=== PATIENT | female | born 1985 | race Caucasian/White ===

== ENCOUNTER 2016-08-09 10:35 | Emergency (ER) | payer OTHER ==
[2016-08-09 11:46] VITALS: BP 128/82
--- NOTE | 2016-08-09 12:17 | UC ---
Throat Pain/Nasal Roberto HPI - History of Current Complaint Chief Complaint: UCGeneralIllness Stated Complaint: THROAT,EARS Time Seen by Provider: 08/09/16 11:49 Hx Obtained From: Patient Hx Last Menstrual Period: 08/17/15 Onset/Duration: Sudden Onset, Lasting Days Severity: Moderate Cough: Nonproductive Associated Signs & Symptoms: Positive: Negative - Epiglottits Risk Factors Epiglottis Risk Factors: Negative - Allergies/Home Medications Allergies/Adverse Reactions: Allergies Allergy/AdvReac Type Severity Reaction Status Date / Time Cefprozil [From Cefzil] Allergy Hives Verified 08/09/16 11:46 Celecoxib [From Celebrex] Allergy Hives Verified 08/09/16 11:46 Quadrivalent HPV Allergy Hives Verified 08/09/16 11:46 (6,11,16,18) Recom [From Gardasil] environmental allergies Allergy Sneezing Uncoded 08/09/16 11:46 Home Medications: Home Medications Oral Contraceptives DAILY 08/09/16 [History] PMH/Surg Hx/FS Hx/Imm Hx Previously Healthy: Yes Respiratory History Of: Denies: Asthma - Surgical History Surgical History: Yes Surgery Procedure, Year, and Place: [facility], 2006, [place]; Ear TUbes x 4-5; T&A, ~2002 - Family History Known Family History: Negative: Cardiac Disease, Hypertension, Diabetes - Social History Alcohol Use: None Substance Use Type: None Smoking Status (MU): Former Smoker Type: Cigarettes Amount Used/How Often: 1/5 PPD Length of Time of Smoking/Using Tobacco: On and Off for 11 Years Have You Smoked in the Last Year: No When Did the Patient Quit Smoking/Using Tobacco: 08/27/15 - Immunization History Most Recent Influenza Vaccination: February 2016 Review of Systems Skin: Negative Eyes: Negative ENT: Sore Throat, Ear Ache Respiratory: Negative Cardiovascular: Negative Genitourinary: Negative Motor: Negative Neurovascular: Negative Musculoskeletal: Negative Neurological: Negative Psychological: Negative All Other Systems Reviewed And Are Negative: Yes Physical Exam Triage Information Reviewed: Yes Appearance: Well-Nourished, Ill-Appearing, Pain Distress Vital Signs: Initial Vital Signs Temp 98.5 F 08/09/16 11:42 Pulse 88 08/09/16 11:42 Resp 16 08/09/16 11:42 BP 128/82 08/09/16 11:42 Pulse Ox 98 08/09/16 11:42 Vital Signs Reviewed: Yes Eye Exam: Normal Eyes: Positive: Conjunctiva Clear ENT Exam: Normal ENT: Positive: Pharyngeal erythema, TMs normal, Tonsillar swelling, Tonsillar exudate Dental Exam: Normal Neck exam: Normal Neck: Positive: Supple, Nontender, No Lymphadenopathy Respiratory Exam: Normal Respiratory: Positive: Chest non-tender, Lungs clear, Normal breath sounds Cardiovascular Exam: Normal Cardiovascular: Positive: RRR, No Murmur, Pulses Normal Abdominal Exam: Normal Abdomen Description: Positive: Nontender, No Organomegaly, Soft Bowel Sounds: Positive: Present Musculoskeletal Exam: Normal Musculoskeletal: Positive: Strength Intact, ROM Intact, No Edema Neurological Exam: Normal Psychological Exam: Normal Skin Exam: Normal Throat Pain/Nasal Course/Dx - Course Course Of Treatment: hx obtained,exam performed, her kids have strep, treated on clinical presentation - Differential Dx/Diagnosis Differential Diagnosis/HQI/PQRI: Influenza, Laryngitis, Otitis Media, Pharyngitis, Sinusitis, URI Provider Diagnoses: strep pharyngitis Discharge - Discharge Plan Condition: Stable Disposition: HOME Prescriptions: Amoxicillin/Clavulanate TAB* [Augmentin TAB 875*] 875 mg PO BID #20 tab Patient Education Materials: Strep Throat (ED) Additional Instructions: take the medication as prescribed. increae your fluid intake and get plenty of rest.
== END 2016-08-09 12:29 | disposition home or self-care (01) ==
LOC: UCCORT 10:35
DX: J02.0 Streptococcal pharyngitis (principal); Z88.1 Allergy status to other antibiotic agents; Z88.8 Allergy status to other drugs, medicaments and biological substances; Z87.891 Personal history of nicotine dependence
CPT/HCPCS: 99211; G0463

== ENCOUNTER 2017-02-15 12:34 | Emergency (ER) | END 2017-02-15 15:33 | disposition left against medical advice (07) | LOC: UCCORT 12:34 | DX: H92.02 Otalgia, left ear (principal); Z53.21 Procedure and treatment not carried out due to patient leaving prior to being seen by health care provider ==

== ENCOUNTER 2017-02-19 08:54 | Emergency (ER) | payer OTHER ==
[2017-02-19 09:20] VITALS: BP 116/64
--- NOTE | 2017-02-19 09:57 | ED ---
Throat Pain/Nasal Congestion - HPI Summary HPI Summary: Pt present with progressive ear pain, sinus pressure and sore throat. no fever, chills. No relief with OTC meds. no rash. No velarde, vision changes Pt denies cp, sob, cough Pt's medications reviewed this visit. - History of Current Complaint Chief Complaint: UCRespiratory Time Seen by Provider: 02/19/17 09:54 Hx Obtained From: Patient Severity: Moderate Cough: Nonproductive - Allergies/Home Medications Allergies/Adverse Reactions: Allergies Allergy/AdvReac Type Severity Reaction Status Date / Time Cefprozil [From Cefzil] Allergy Hives Verified 02/19/17 09:15 Celecoxib [From Celebrex] Allergy Hives Verified 02/19/17 09:15 Quadrivalent HPV Allergy Hives Verified 02/19/17 09:15 (6,11,16,18) Recom [From Gardasil] environmental allergies Allergy Sneezing Uncoded 02/19/17 09:15 Home Medications: Home Medications Ibuprofen TAB* [Advil TAB*] 600 mg PO Q6H PRN 02/19/17 [History Confirmed ] PMH/Surg Hx/FS Hx/Imm Hx Previously Healthy: Yes Respiratory History: Denies: Hx Asthma - Surgical History Surgery Procedure, Year, and Place: [facility], 2006, [place]; Ear TUbes x 4-5; T&A, ~2002 Infectious Disease History: Yes Infectious Disease History: Reports: Hx Shingles - X 3 Denies: Traveled Outside the [place] in Last 30 Days - Family History Known Family History: Negative: Cardiac Disease, Hypertension, Diabetes - Social History Occupation: Employed Full-time Lives: With Family Alcohol Use: None Substance Use Type: Reports: None Smoking Status (MU): Light Every Day Tobacco Smoker Type: Cigarettes Amount Used/How Often: 1/7 PPD Length of Time of Smoking/Using Tobacco: On and Off Since Age 19 Have You Smoked in the Last Year: No Review of Systems Positive: Fever - tactile Positive: Sore Throat, Ear Ache, Nasal Discharge Respiratory: Negative Gastrointestinal: Negative All Other Systems Reviewed And Are Negative: Yes Physical Exam Triage Information Reviewed: Yes Vital Signs On Initial Exam: Initial Vitals Temp Pulse Resp BP Pulse Ox 98 F 66 16 116/64 99 02/19/17 09:13 02/19/17 09:13 02/19/17 09:13 02/19/17 09:13 02/19/17 09:13 Vital Signs Reviewed: Yes Appearance: Positive: Well-Appearing, Pain Distress - appears uncomfortable Skin: Positive: Warm, Skin Color Reflects Adequate Perfusion Head/Face: Positive: Normal Head/Face Inspection Eyes: Positive: Normal, EOMI, JACK, Conjunctiva Clear, Conjunctiva Inflammed ENT: Negative: TMs normal - + left ear erythema, bulging no mastoid pain right TM mild erythema turbinate inflammed + PND no exudate no erythema Neck: Positive: Supple, Nontender, No Lymphadenopathy Respiratory/Lung Sounds: Positive: Clear to Auscultation, Breath Sounds Present , Decreased Breath Sounds Cardiovascular: Positive: Normal, RRR Abdomen Description: Positive: Nontender, No Organomegaly, Soft Bowel Sounds: Positive: Present Musculoskeletal: Positive: Normal Neurological: Positive: Normal, Sensory/Motor Intact, Alert, Oriented to Person Place, Time Psychiatric: Positive: Normal AVPU Assessment: Alert - [place] Coma Scale Best Eye Response: 4 - Spontaneous Best Motor Response: 6 - Obeys Commands Best Verbal Response: 5 - Oriented Diagnostics - Vital Signs Vital Signs Temp Pulse Resp BP Pulse Ox 02/19/17 09:13 98 F 66 16 116/64 99 - Laboratory Lab Statement: Any lab studies that have been ordered have been reviewed, and results considered in the medical decision making process. EENT Course/Dx - Course Assessment/Plan: Pt presents with sinus pressure, ear pain. left OM on exam. will abx. secretion precautions. return precautions - Diagnoses Provider Diagnoses: Otitis media Discharge - Discharge Plan Condition: Stable Disposition: HOME Prescriptions: Amoxicillin/Clavulanate TAB* [Augmentin TAB 875*] 875 mg PO BID #20 tab Fluticasone NASAL SPRAY 50MCG* [Flonase NASAL SPRAY 50MCG*] 2 spray BOTH NARES DAILY #1 btl Patient Education Materials: Otitis Media (ED) Referrals: Wendy Abdul MD [Primary Care Provider] - Additional Instructions: - Stay well hydrated. Drink plenty of non-alcoholic, non-caffinated beverages. - take antibiotics and nasal spray as prescribed. - After you have been on antibiotics for 2 days - change your toothbrush and your pillowcase. These infections are spread by secretions - do NOT share eating or drinking utensils - clean items you share with other people such as cell phones, computer mouse, TV remote, computer tablets, etc - Alternate ibuprofen (Advil, Motrin) 600mg and Tylenol every 3 hours for pain or fever. Take with food. Do NOT take for more than 4-5 days. Call your doctor or return with questions or concerns
== END 2017-02-19 10:17 | disposition home or self-care (01) ==
LOC: UCCORT 08:54
DX: H66.92 Otitis media, unspecified, left ear (principal); F17.210 Nicotine dependence, cigarettes, uncomplicated; Z88.6 Allergy status to analgesic agent; Z88.1 Allergy status to other antibiotic agents; Z88.7 Allergy status to serum and vaccine
CPT/HCPCS: 99212; G0463

== ENCOUNTER 2017-07-30 16:44 | Emergency (ER) | payer OTHER ==
[2017-07-30 18:26] VITALS: BP 120/66
--- NOTE | 2017-07-30 18:32 | UC ---
Knee Pain HPI - HPI Summary HPI Summary: Pt with right knee pain x approx 10 days started after jumping on [employer] [place]. Pt states intermittently feels like "catches" little relief with motrin/ apap. Pt has ice but continue pain. No fall. no other injuries. no paresthesia. Pt states several years ago had meniscal tear - no intervention. Pt's medications reviewed this visit - History of Current Complaint Chief Complaint: UCLowerExtremity Stated Complaint: RT KNEE PAIN Time Seen by Provider: 07/30/17 18:16 Hx Obtained From: Patient Hx Last Menstrual Period: 07/27/17 Onset/Duration: Gradual Onset, Lasting Days Pain Intensity: 4 Pain Scale Used: 0-10 Numeric Character: Sharp, Stiffness Aggravating Factor(s): Movement, Weight Bearing Alleviating Factor(s): Rest, Position Associated Signs And Symptoms: Positive: Swelling. Negative: Numbness, Tingling - Allergies/Home Medications Allergies/Adverse Reactions: Allergies Allergy/AdvReac Type Severity Reaction Status Date / Time cefprozil [From Cefzil] Allergy Hives Verified 07/30/17 18:18 celecoxib [From Celebrex] Allergy Hives Verified 07/30/17 18:18 ciprofloxacin Allergy Hives Verified 07/30/17 18:18 environmental allergies Allergy Sneezing Uncoded 07/30/17 18:18 HPV Vaccine Allergy Hives Uncoded 07/30/17 18:18 Home Medications: Home Medications NK [No Home Medications Reported] 07/30/17 [History Confirmed 07/30/17] PMH/Surg Hx/FS Hx/Imm Hx Previously Healthy: Yes - Surgical History Surgical History: Yes Surgery Procedure, Year, and Place: LEEP, 2007, [place]; Ear TUbes x 4-5; T&A, ~2002 - Family History Known Family History: Negative: Cardiac Disease, Hypertension, Diabetes - Social History Occupation: Works From/At Home Lives: With Family Alcohol Use: Occasionally Substance Use Type: None Smoking Status (MU): Light Every Day Tobacco Smoker Type: Cigarettes Amount Used/How Often: 1/7 PPD Length of Time of Smoking/Using Tobacco: On and Off Since Age 19 Have You Smoked in the Last Year: No When Did the Patient Quit Smoking/Using Tobacco: 08/27/15 - Immunization History Most Recent Influenza Vaccination: Not the Season Review of Systems Constitutional: Negative Skin: Negative Motor: Other - right knee pain Musculoskeletal: Other: Neurological: Negative All Other Systems Reviewed And Are Negative: Yes Physical Exam Triage Information Reviewed: Yes Appearance: Well-Appearing, No Pain Distress, Well-Nourished Vital Signs: Initial Vital Signs Temp 98.6 F 07/30/17 18:18 Pulse 70 07/30/17 18:18 Resp 16 07/30/17 18:18 BP 120/66 07/30/17 18:18 Pulse Ox 100 07/30/17 18:18 Vital Signs Reviewed: Yes Eye Exam: Normal ENT Exam: Normal ENT: Positive: Normal ENT inspection, Hearing grossly normal, Pharynx normal Dental Exam: Normal Neck exam: Normal Neck: Positive: Supple, Nontender Respiratory Exam: Normal Respiratory: Positive: Chest non-tender, Lungs clear, No respiratory distress, No accessory muscle use Cardiovascular: Positive: Other: - 2+ PT, popliteal Musculoskeletal: Positive: Other: - + SLE + flex/ext right knee with pain medial aspect knee Neg anterior/posterior drawer; no laxity lateral stress + TTP left anterior, medial margin joint line no crepitus Neurological Exam: Normal Neurological: Positive: Alert, Other: - + gross sensation throughout Psychological Exam: Normal Skin: Positive: Other - mild edema diffuse right knee Diagnostics - Radiology No standard instances Radiology Interpretation Completed By: Radiologist - small joint infection, no fx Re-Evaluation - Re-Evaluation First Eval Comment: reviewd xray with pt. motrin/apap. ortho referral. alexys crutch. elevate Knee Pain Course/Dx - Course Course Of Treatment: right lateral knee pain s/p jumping injury. pt with pain medial aspect of right knee. imaging. splint. alexys. elevate. pcp f/u - Differential Dx/Diagnosis Provider Diagnoses: right knee sprain Discharge - Discharge Plan Condition: Stable Disposition: HOME Patient Education Materials: Knee Sprain (DC) Referrals: Akash Leone MD [Medical Doctor] - Wendy Abdul MD [Primary Care Provider] - Additional Instructions: -wear alexys wrap for comfort and support -apply ice (20 min at a time) every 2-3 hours for the next 2 days -use crutches until you can walk normally without a limp -Elevate your leg - this will help with swelling and pain -alternate ibuprofen (Advil, Motrin) and Tylenol every 3hours for pain. Take with food. Do NOT take for more than 4-5 days -Contact the orthopedic provider to arrange a follow-up appointment. Contact your doctor or return with questions or concerns
--- NOTE | 2017-07-30 19:20 | RAD ---
Indication: Right knee pain. 4 views of the right knee demonstrates joint space to be well preserved. Small joint effusion is noted. No fractures identified. IMPRESSION: Small joint effusion without fracture.
== END 2017-07-30 19:50 | disposition home or self-care (01) ==
LOC: UCCORT 16:44
DX: S83.91XA Sprain of unspecified site of right knee, initial encounter (principal); Y93.39 Activity, other involving climbing, rappelling and jumping off; Y93.89 Activity, other specified; Y92.9 Unspecified place or not applicable; Z88.1 Allergy status to other antibiotic agents; Z88.7 Allergy status to serum and vaccine; Z88.8 Allergy status to other drugs, medicaments and biological substances
CPT/HCPCS: 99213; G0463

== ENCOUNTER 2018-10-11 10:56 | Emergency (ER) | payer OTHER ==
[2018-10-11 12:30] VITALS: BP 119/79
--- NOTE | 2018-10-11 12:30 | UC ---
Ear Complaint HPI - HPI Summary HPI Summary: Patient has chronic seasonal allergies and started expressing leftearache over the past 24 hours. Her last ear infection was 2 months ago. She has not followed up with an ear nose and throat physician for her chronic ear infections. - History of Current Complaint Stated Complaint: BI LAT EAR PAIN Time Seen by Provider: 10/11/18 12:30 Hx Obtained From: Patient Hx Last Menstrual Period: 10/09/18 ?: No Onset/Duration: Sudden Onset Severity Initially: Moderate Severity Currently: Mild Pain Intensity: 4 Aggravating Factors: Nothing Alleviating Factors: Nothing Related History: Seasonal Allergies - Recent flareup of seasonal allergies - Allergies/Home Medications Allergies/Adverse Reactions: Allergies Allergy/AdvReac Type Severity Reaction Status Date / Time cefprozil [From Cefzil] Allergy Hives Verified 10/11/18 12:26 celecoxib [From Celebrex] Allergy Hives Verified 10/11/18 12:26 ciprofloxacin Allergy Hives Verified 10/11/18 12:26 human papillomavirus Allergy Hives Verified 10/11/18 12:26 vaccine, quadr [From Gardasil (PF)] environmental allergies Allergy Sneezing Uncoded 10/11/18 12:26 Home Medications: Home Medications Ibuprofen TAB* [Advil TAB*] 600 mg PO Q6H PRN 10/11/18 [History Confirmed ] LevoCETirizine TAB (NF) [Xyzal TAB (NF)] 5 mg PO DAILY 10/11/18 [History Confirmed 10/11/18] Norethindrone AC-Eth Estradiol [Loestrin 06/16-21 1-20 mg-Mcg] 1 tab PO DAILY [History Confirmed 10/11/18] PMH/Surg Hx/FS Hx/Imm Hx Previously Healthy: Yes - Surgical History Surgical History: Yes Surgery Procedure, Year, and Place: [facility], 2007, [place]; Ear TUbes x 4-5; T&A, ~2002 - Family History Known Family History: Negative: Cardiac Disease, Hypertension, Diabetes - Social History Alcohol Use: Occasionally Substance Use Type: None Smoking Status (MU): Light Every Day Tobacco Smoker Type: Cigarettes Amount Used/How Often: / PPD Length of Time of Smoking/Using Tobacco: On and Off Since Age 19 Have You Smoked in the Last Year: No When Did the Patient Quit Smoking/Using Tobacco: 08/27/15 - Immunization History Most Recent Influenza Vaccination: Not the 2016/2017 Season Review of Systems All Other Systems Reviewed And Are Negative: Yes ENT: Positive: Ear Ache - left-sided earache Is Patient Immunocompromised?: No Physical Exam Triage Information Reviewed: Yes Appearance: Well-Appearing, No Pain Distress, Well-Nourished Vital Signs: Initial Vital Signs Temp 98.5 F 10/11/18 12:25 Pulse 72 10/11/18 12:25 Resp 16 10/11/18 12:25 BP 119/79 10/11/18 12:25 Pulse Ox 100 10/11/18 12:25 Vital Signs Reviewed: Yes Eye Exam: Normal ENT: Positive: Hearing grossly normal, Pharynx normal, TM red - Left tympanic membrane with erythema poor landmarks and light reflex. Neck: Positive: Supple, Nontender, No Lymphadenopathy Respiratory: Positive: Lungs clear, Normal breath sounds, No respiratory distress, No accessory muscle use Cardiovascular: Positive: RRR, No Murmur, Pulses Normal, Brisk Capillary Refill Musculoskeletal Exam: Normal Neurological Exam: Normal Psychological Exam: Normal Skin Exam: Normal Ear Complaint Course/Dx - Course Course Of Treatment: Patient's last ear infection was approximately 2 months ago and she stated that she had taken a Z-Tj but then was changed to "high dose amoxicillin". At this point time going to give her on Augmentin 875 by mouth twice a day 10 days with a follow-up to the ear nose and throat physician. - Differential Dx/Diagnosis Provider Diagnosis: Left otitis media Discharge - Sign-Out/Discharge Documenting (check all that apply): Patient Departure All imaging exams completed and their final reports reviewed: No Studies - Discharge Plan Condition: Fair Disposition: HOME Prescriptions: Amoxicillin/Clavulanate TAB* [Augmentin TAB 875*] 875 mg PO BID 10 Days #20 tab Patient Education Materials: Ear Infection (ED) Referrals: Vanesa Carlton PA [Primary Care Provider] - Manfred Trujillo MD [Medical Doctor] - Additional Instructions: Take the antibiotic twice a day with food, Tylenol or Motrin for pain, follow- up with Dr. Trujillo in the next 4 or 5 days if no improvement and for treatment of chronic ear infections. - Billing Disposition and Condition Condition: FAIR Disposition: Home
== END 2018-10-11 13:06 | disposition home or self-care (01) ==
LOC: UCCORT 10:56
DX: H66.92 Otitis media, unspecified, left ear (principal); F17.210 Nicotine dependence, cigarettes, uncomplicated; Z91.09 Other allergy status, other than to drugs and biological substances; Z88.1 Allergy status to other antibiotic agents; Z88.8 Allergy status to other drugs, medicaments and biological substances; Z88.7 Allergy status to serum and vaccine
CPT/HCPCS: 99212; G0463

== ENCOUNTER 2018-11-27 12:51 | Emergency (ER) | payer OTHER ==
[2018-11-27 13:10] VITALS: BP 124/73
--- NOTE | 2018-11-27 13:27 | ED ---
Throat Pain/Nasal Congestion - HPI Summary HPI Summary: 33 yr old female with the complaint of sinus pressure, post nasal drip, and ear pain. Onset over the past week. She states she gets frequent sinus infection and ear infections. She states her symptoms are moderate. - History of Current Complaint Chief Complaint: UCGeneralIllness Time Seen by Provider: 11/27/18 13:06 - Allergies/Home Medications Allergies/Adverse Reactions: Allergies Allergy/AdvReac Type Severity Reaction Status Date / Time cefprozil [From Cefzil] Allergy Hives Verified 11/27/18 13:10 celecoxib [From Celebrex] Allergy Hives Verified 11/27/18 13:10 ciprofloxacin Allergy Hives Verified 11/27/18 13:10 human papillomavirus Allergy Hives Verified 11/27/18 13:10 vaccine, quadr [From Gardasil (PF)] environmental allergies Allergy Sneezing Uncoded 11/27/18 13:10 Home Medications: Home Medications Fluticasone NASAL SPRAY 50MCG* [Flonase NASAL SPRAY 50MCG*] 2 spray BOTH NARES DAILY 11/27/18 [History Confirmed 11/27/18] PMH/Surg Hx/FS Hx/Imm Hx Respiratory History: Denies: Hx Asthma - Surgical History Surgery Procedure, Year, and Place: LEEP, 2007, [place]; Ear TUbes x 4-5; T&A, ~2002 Infectious Disease History: No Infectious Disease History: Reports: Hx Shingles Denies: Traveled Outside the [place] in Last 30 Days - Family History Known Family History: Negative: Cardiac Disease, Hypertension, Diabetes - Social History Occupation: Employed Full-time Alcohol Use: Occasionally Substance Use Type: Reports: None Smoking Status (MU): Light Every Day Tobacco Smoker Type: Cigarettes Amount Used/How Often: 1/7 PPD Length of Time of Smoking/Using Tobacco: On and Off Since Age 19 Have You Smoked in the Last Year: No Review of Systems Constitutional: Negative Positive: Ear Ache, Nasal Discharge All Other Systems Reviewed And Are Negative: Yes Physical Exam Triage Information Reviewed: Yes Vital Signs On Initial Exam: Initial Vitals Temp Pulse Resp BP Pulse Ox 97.6 F 88 16 124/73 100 11/27/18 13:06 11/27/18 13:06 11/27/18 13:06 11/27/18 13:06 11/27/18 13:06 Vital Signs Reviewed: Yes Appearance: Positive: Well-Appearing, No Pain Distress Skin: Positive: Warm, Skin Color Reflects Adequate Perfusion Head/Face: Positive: Normal Head/Face Inspection Eyes: Positive: EOMI, JACK ENT: Positive: TM red - bilateral right worse then left, Sinus tenderness Neck: Positive: Nontender Respiratory/Lung Sounds: Positive: Clear to Auscultation, Breath Sounds Present Cardiovascular: Positive: RRR. Negative: Murmur Abdomen Description: Negative: Distended Musculoskeletal: Positive: Strength/ROM Intact Neurological: Positive: Sensory/Motor Intact, Alert, Oriented to Person Place, Time, CN Intact II-III, Normal Gait, Speech Normal Psychiatric: Positive: Normal Diagnostics - Vital Signs Vital Signs Temp Pulse Resp BP Pulse Ox 11/27/18 13:06 97.6 F 88 16 124/73 100 - Laboratory Lab Statement: Any lab studies that have been ordered have been reviewed, and results considered in the medical decision making process. EENT Course/Dx - Course Course Of Treatment: 33 yr old with sinusitis and also OM. She has taken augmentin in the past with no issues at all. DC home on augmentin FU with Dr Trujillo as she is already a patient. - Diagnoses Provider Diagnoses: Sinusitis, Otitis media of both ears Discharge - Sign-Out/Discharge Documenting (check all that apply): Patient Departure All imaging exams completed and their final reports reviewed: No Studies - Discharge Plan Condition: Good Disposition: HOME Prescriptions: Amoxicillin/Clavulanate TAB* [Augmentin TAB 875*] 875 mg PO BID #20 tab Patient Education Materials: Sinusitis (ED) Referrals: Vanesa Carlton PA [Primary Care Provider] - - Billing Disposition and Condition Condition: GOOD Disposition: Home
== END 2018-11-27 13:40 | disposition home or self-care (01) ==
LOC: UCCORT 12:51
DX: J32.9 Chronic sinusitis, unspecified (principal); H66.93 Otitis media, unspecified, bilateral; Z88.1 Allergy status to other antibiotic agents; F17.210 Nicotine dependence, cigarettes, uncomplicated
CPT/HCPCS: 99212; G0463